=== PATIENT | male | born 1995 | race Two or more races ===

== ENCOUNTER 2024-04-01 02:56 | Inpatient (IN) | payer MEDICAID, OTHER ==
[~2024-04-01] VITALS: Ht 182.9 cm; Wt 88.8 kg
[2024-04-01] VITALS (10 sets, daily range): BP systolic 107–145; BP diastolic 49–68; PULSE 83–104; RESP 18–22; TEMP 98.2–99.8; O2SAT 94–100
[2024-04-01 03:27] LABS: Basophils # (auto) 0 10 ^3/uL (0-0.2); Basophils % (auto) 0.2 % (0.0-2.0); Eosinophils # (auto) 0.1 10 ^3/uL (0-0.8); Hematocrit 21.7 % (41.0-53.0); Hemoglobin 7.6 g/dL (13.5-17.5); Lymphocytes % (auto) 34.3 % (10.0-50.0); Monocytes # (auto) 0.4 10 ^3/uL (0-1.3)
[2024-04-01 03:28] LABS: Eosinophils % (auto) 0.8 % (0.0-7.0); Lymphocytes # (auto) 2.8 10 ^3/uL (0.4-5.4); Mean Corpuscular Hemoglobin 29.3 pg (28.0-32.0); Mean Corpuscular Hgb Conc. 35.1 g/dL (32.0-36.0); Mean Corpuscular Volume 83.4 fL (80.0-100.0); Monocytes % (auto) 5.1 % (0.0-12.0); Neutrophils # (auto) 4.9 10 ^3/uL (1.6-8.6); Neutrophils % (auto) 59.6 % (37.0-80.0); Red Cell Distribution Width 12.6 % (11.8-14.3); White Blood Cell 8.2 10^3/uL (4.4-10.8)
[2024-04-01] MEDS: SODIUM CHLORIDE 0.9% 1,000 ML IV ONE (03:32)
[2024-04-01 03:33] LABS: Chloride 105 mmol/L (98-107); Potassium 3.8 mmol/L (3.5-5.1); Sodium 135 mmol/L (136-145)
[2024-04-01 03:34] LABS: Anion Gap 6 (5-15); Carbon Dioxide 24 mmol/L (20-30)
[2024-04-01 03:35] LABS: Calcium 8.3 mg/dL (8.7-10.4)
[2024-04-01 03:39] LABS: BUN/Creatinine Ratio 30.9 (10.0-20.0); Blood Urea Nitrogen 29 mg/dL (9-23); Glucose 139 mg/dL (74-106)
[2024-04-01 03:46] LABS: Urine Bacteria None Seen /hpf (None Seen)
[2024-04-01 03:59] LABS: Urine Blood Negative /uL (Negative); Urine Clarity Clear (Clear); Urine Color Light-Yellow (Yellow); Urine Mucus FEW (None Seen); Urine Protein, UAD Negative (Negative); Urine Specific Gravity 1.027 (1.001-1.035); Urine Urobilinogen Normal (Negative); Urine WBC <1 /hpf (0 - 3)
[2024-04-01 04:03] LABS: Amphetamine Screen, Urine Neg (NEGATIVE)
[2024-04-01 04:04] LABS: Barbiturate Scree,Urine Neg (NEGATIVE); Benzodiazephine Screen, Urine Neg (NEGATIVE); Cannabinoid Screen, Urine Neg (NEGATIVE); Cocaine Screen, Urine Neg (NEGATIVE); Opiate Scree,Urine Neg (NEGATIVE); Phencyclidine Screen, Urine Neg (NEGATIVE)
[2024-04-01] MEDS: metroNIDAZOLE 500MG/100ML 100 ML IV ONE (05:10)
[2024-04-01] MEDS ORDERED: MORPHINE SULFATE INJ 2 MG/ml SYRG IV PRN ×2 (10:30)
[2024-04-01] MEDS ORDERED: DOCUSATE SOD 100 MG CAP PO PRN (10:30)
[2024-04-01] MEDS ORDERED: PIPERACILLIN-TAZOB 3.375GM 100 ML IV ONE (10:30)
[2024-04-01] MEDS ORDERED: NITROGLYCERIN 0.4 MG SL TAB SL PRN (10:30)
[2024-04-01 11:23] LABS: % Iron Saturation 69.2 % (20-55)
[2024-04-01 11:25] LABS: Hemoglobin 7.3 g/dL (13.5-17.5)
[2024-04-01 11:29] LABS: Hematocrit 20.5 % (41.0-53.0)
[2024-04-01 12:57] LABS: Folate (Folic Acid) 11.57 ng/mL (>5.38)
[2024-04-01 12:58] LABS: Ferritin 29.9 ng/mL (22-322)
[2024-04-01 13:38] LABS: Hematocrit 19.6 % (41.0-53.0)
[2024-04-01] MEDS: PANTOPRAZOLE 40 MG/10 ML VIAL INJ IV ONE (13:47)
[2024-04-01] MEDS: SODIUM CHLORIDE 0.9% 1,000 ML IV SCH (13:47)
[2024-04-01] MEDS: PIPERACILLIN-TAZOB 3.375GM 100 ML IV SCH ×2 (13:47→21:02)
[2024-04-01] MEDS: PANTOPRAZOLE 40mg/50ML NS AE 50 ML IV SCH (21:15)
[2024-04-01 21:40] LABS: Hemoglobin 7.7 g/dL (13.5-17.5)
[2024-04-01 21:45] LABS: Hematocrit 21.5 % (41.0-53.0)
[2024-04-01] MEDS ORDERED: PANTOPRAZOLE 40 MG/10 ML VIAL INJ IV SCH (22:00)
[2024-04-02] VITALS (9 sets, daily range): BP systolic 118–138; BP diastolic 55–71; PULSE 59–91; RESP 15–18; TEMP 98.3–98.8; O2SAT 98–100
[2024-04-02 06:41] LABS: Basophils # (auto) 0 10 ^3/uL (0-0.2); Basophils % (auto) 0.3 % (0.0-2.0); Eosinophils # (auto) 0.1 10 ^3/uL (0-0.8); Hematocrit 23.9 % (41.0-53.0); Hemoglobin 8.5 g/dL (13.5-17.5); Lymphocytes % (auto) 32.6 % (10.0-50.0); Mean Corpuscular Hemoglobin 30.9 pg (28.0-32.0); Mean Corpuscular Hgb Conc. 35.5 g/dL (32.0-36.0); Mean Corpuscular Volume 87.1 fL (80.0-100.0); Monocytes # (auto) 0.5 10 ^3/uL (0-1.3); Monocytes % (auto) 8.7 % (0.0-12.0); Neutrophils # (auto) 3.6 10 ^3/uL (1.6-8.6); Neutrophils % (auto) 57.4 % (37.0-80.0); Nucleated Red Blood Cells % 0.2 %; Red Blood Cells 2.74 10^6/uL (4.5-5.90); Red Cell Distribution Width 13.6 % (11.8-14.3); White Blood Cell 6.3 10^3/uL (4.4-10.8)
[2024-04-02 07:14] LABS: Alanine Aminotransferase 53 U/L (7-40); Albumin 3.2 g/dL (3.2-4.8); Alkaline Phosphatase 55 U/L (46-116); Anion Gap 4 (5-15); Aspartate Aminotransferase 36 U/L (13-40); BUN/Creatinine Ratio 12.6 (10.0-20.0); Bilirubin, Total 0.7 mg/dL (0.2-1.0); Blood Urea Nitrogen 14 mg/dL (9-23); Calcium 8.5 mg/dL (8.7-10.4); Carbon Dioxide 27 mmol/L (20-30); Chloride 107 mmol/L (98-107); Glucose 105 mg/dL (74-106); Potassium 3.8 mmol/L (3.5-5.1); Sodium 138 mmol/L (136-145); Total Protein 4.9 g/dL (5.7-8.2)
[2024-04-02] MEDS ORDERED: FLUMAZENIL 0.1 MG/ML INJ 10ML MDV IV ONE (08:54)
[2024-04-02] MEDS ORDERED: NALOXONE HCL 0.4 MG/ML VIAL ONE (08:54)
[2024-04-02] MEDS ORDERED: SODIUM CHLORIDE LOCK 10 ML ONE ×2 (08:55→10:24)
[2024-04-02] MEDS ORDERED: LIDOCAINE VISCOUS 2% 15ML UD ONE (08:55)
[2024-04-02] MEDS: MIDAZOLAM HCL 5 MG/ML-1ML VIAL ONE (10:11)
[2024-04-02] MEDS: fentaNYL CITRATE 100 MCG/2 ML VL ONE (10:11)
[2024-04-02] MEDS: diphenhdrAMINE HCL 50 MG/1 ML VL ONE (10:14)
[2024-04-02] MEDS ORDERED: EPINEPHrine HCL 1 MG/1 ML AMP ONE (10:23)
[2024-04-02] MEDS: EPINEPHrine HCL 1 MG/10 ML SYRG ONE (10:26)
[2024-04-02] MEDS: MIDAZOLAM HCL 2MG/2ML 2ml VIAL (1mg/ml) ONE (10:28)
[2024-04-02] MEDS: ONDANSETRON HCL 4 MG/2 ML VIAL IV PRN (11:43)
[2024-04-02 12:12] LABS: Hematocrit 25.7 % (41.0-53.0); Hemoglobin 9.1 g/dL (13.5-17.5)
[2024-04-02 18:31] LABS: Hematocrit 23.7 % (41.0-53.0); Hemoglobin 8.2 g/dL (13.5-17.5)
[2024-04-03] VITALS (7 sets, daily range): BP systolic 118–131; BP diastolic 58–68; PULSE 61–79; RESP 17–20; TEMP 97.6–98.9; O2SAT 96–100
[2024-04-03] MEDS: SUCRALFATE 1 GM/10 ML ORAL SUSP GT SCH (17:00)
[2024-04-04] VITALS (8 sets, daily range): BP systolic 117–139; BP diastolic 60–77; PULSE 58–75; RESP 16–20; TEMP 98–99; O2SAT 96–100
[2024-04-04 05:09] LABS: Basophils # (auto) 0 10 ^3/uL (0-0.2); Basophils % (auto) 0.4 % (0.0-2.0); Eosinophils # (auto) 0.1 10 ^3/uL (0-0.8); Eosinophils % (auto) 1.5 % (0.0-7.0); Hematocrit 23.5 % (41.0-53.0); Hemoglobin 8.2 g/dL (13.5-17.5); Lymphocytes % (auto) 35.9 % (10.0-50.0); Mean Corpuscular Hemoglobin 30.7 pg (28.0-32.0); Mean Corpuscular Hgb Conc. 34.9 g/dL (32.0-36.0); Monocytes # (auto) 0.4 10 ^3/uL (0-1.3); Monocytes % (auto) 7.5 % (0.0-12.0); Neutrophils # (auto) 3.1 10 ^3/uL (1.6-8.6); Neutrophils % (auto) 54.7 % (37.0-80.0); Nucleated Red Blood Cells % 0.2 %; Red Blood Cells 2.67 10^6/uL (4.5-5.90); Red Cell Distribution Width 13.9 % (11.8-14.3); White Blood Cell 5.6 10^3/uL (4.4-10.8)
[2024-04-04 14:19] LABS: Hepatitis C Antibody Negative (Negative)
[2024-04-04] MEDS: PANTOPRAZOLE 40 MG TAB PO SCH (17:06)
[2024-04-05 01:00] VITALS: BP 128/62; PULSE 63; RESP 18; TEMP 98.8; O2SAT 96
[2024-04-05 03:38] LABS: Hepatitis B Surface Antigen Negative (Negative)
[2024-04-05 05:00] VITALS: BP 126/60; PULSE 74; RESP 18; TEMP 98.3; O2SAT 98
[2024-04-05 08:00] VITALS: PULSE 69; RESP 18; O2SAT 100
[2024-04-05 08:30] VITALS: BP 126/68; PULSE 69; RESP 18; TEMP 97.7; O2SAT 100
[2024-04-05] MEDS ORDERED: SUCR1TAB31 OR (12:28)
[2024-04-05] MEDS ORDERED: PANT40TA2 PO (12:28)
[2024-04-05 13:30] VITALS: BP 115/75; PULSE 73; RESP 17; TEMP 97.7; O2SAT 100
[2024-04-05 14:51] VITALS: BP 115/75; PULSE 73; RESP 17; TEMP 97.7; O2SAT 100
== END 2024-04-05 15:30 | disposition home or self-care (01) | DRG 241 ==
LOC: ER 02:56 → EDBD 02:56 → OVERFLOW 10:36 → WEST WING 11:43
PROVIDERS: ADMIT Nurse Practitioner Family; ATTEND Nurse Practitioner Acute Care
PROC: 30233N1 Transfusion of Nonautologous Red Blood Cells into Peripheral Vein, Percutaneous Approach (ICD-10-PCS; principal; 2024-04-01)
PROC: 3E0G8GC Introduction of Other Therapeutic Substance into Upper GI, Via Natural or Artificial Opening Endoscopic (ICD-10-PCS; 2024-04-02)
PROC: 0W3P8ZZ Control Bleeding in Gastrointestinal Tract, Via Natural or Artificial Opening Endoscopic (ICD-10-PCS; 2024-04-02)
DX: K26.4 Chronic or unspecified duodenal ulcer with hemorrhage (principal); K52.9 Noninfective gastroenteritis and colitis, unspecified; D62 Acute posthemorrhagic anemia
CPT/HCPCS: 36415; 43255; 74176; 80048; 80053; 80307; 80320; 81001; 82270; 82607; 82728; 82746; 83540; 83550; 83615; 85014; 85018; 85025; 85045; 86803; 86850; 86900; 86901; 86920; 87340; 93005; 96361; 96365; G0378; J0171; J2250; J2405; J2470; J2543; J3490